=== PATIENT | female | born 1955 | race Caucasian/White ===

== ENCOUNTER 2022-08-14 19:18 | Emergency (ER) | payer BC ==
[~2022-08-14] VITALS: Ht 167.6 cm; Wt 90.9 kg
[2022-08-14 19:37] VITALS: BP 207/110
[2022-08-15] MEDS ORDERED: TETanus/Pertussis (Acell)/Diphther VAC/PF (Tdap-Adult) 0.5ml syringe IMVAC ONE (01:15)
[2022-08-15] MEDS ORDERED: ibuprofen tablet 400 MG TABLET PO ONE (01:45)
[2022-08-15] MEDS ORDERED: acetaminophen 325mg tablet PO ONE (01:45)
== END 2022-08-15 02:09 | disposition home or self-care (01) ==
LOC: ER 19:18
DX: S01.01XA Laceration without foreign body of scalp, initial encounter (principal); S40.021A Contusion of right upper arm, initial encounter; M54.50 Low back pain, unspecified; I10 Essential (primary) hypertension; G89.29 Other chronic pain; Z88.2 Allergy status to sulfonamides; W01.0XXA Fall on same level from slipping, tripping and stumbling without subsequent striking against object, initial encounter; Y93.89 Activity, other specified; Y92.89 Other specified places as the place of occurrence of the external cause; Y99.8 Other external cause status
CPT/HCPCS: 12001; 72100; 73110; 90471; 90715; 99283; 99284